=== PATIENT | male | born 1985 | race Caucasian/White ===

== ENCOUNTER 2022-06-10 16:07 | Outpatient (CLI) | payer OTHER, SELFPAY ==
[2022-06-10 16:29] LABS: Hematocrit 37.7 % (42.0-52.0); Hemoglobin 12.7 g/dL (14.0-18.0); Mean Corpuscular HGB Conc 33.7 g/dl (32-36); Mean Corpuscular Hemoglobin 32.7 pg (26-34); Mean Corpuscular Volume 97.2 fl (80-100); Mean Platelet Volume 9.2 fl (7.4-10.4); Platelet Count Result 307 k/mm3 (150-375); Red Blood Count 3.88 M/mm3 (4.6-6.20); Red Cell Distribution Width 12.9 % (11.5-14.5); White Blood Count 9.3 K/mm3 (4.5-10.0)
[2022-06-10 16:42] LABS: Alanine Aminotransferase 47 U/L (6-50); Albumin Level 4.4 g/dL (3.5-5.1); Alkaline Phosphatase 55 U/L (38-126); Anion Gap 6 mmol/L (8-16); Aspartate Amino Transferase 63 U/L (17-59); Bilirubin,Total 0.5 mg/dL (0.2-1.3); Blood Urea Nitrogen 15 mg/dL (9-20); CRP < 0.5 mg/dL (<1.0); Calcium 9.1 mg/dL (8.4-10.2); Carbon Dioxide 27 mmol/L (22-30); Chloride 102 mmol/L (98-107); Estimated Glomerular Filt Rate > 60; Glucose 76 mg/dL (65-110); Potassium 3.8 mmol/L (3.4-5.0); Sodium 135 mmol/L (137-145)
[2022-06-10 16:57] LABS: Erythrocyte Sedimentation Rate 15 mm/hr (0-20)
[2022-06-20 09:49] LABS: Gliadin AB, IgG <1.0 U/mL (<15.0); TTG IGA AB <1.0 U/mL (<15.0)
== END 2022-06-10 16:08 | disposition home or self-care (01) ==
LOC: ANHLAB 16:08
PROVIDERS: PCP Internal Medicine; Visit Provider Nurse Practitioner
DX: K92.1 Melena (principal); K62.89 Other specified diseases of anus and rectum
CPT/HCPCS: 36415; 80053; 83516; 85027; 85652; 86140; 86255

== ENCOUNTER 2022-06-16 14:37 | Outpatient (CLI) | payer OTHER, SELFPAY ==
[2022-06-16 18:10] LABS: Iron 167 ug/dL (49-181)
[2022-06-16 18:26] LABS: Percent Iron Saturation 41 % (20-50)
[2022-06-16 19:21] LABS: Folic Acid 6.6 ng/mL (2.76->20)
== END 2022-06-16 14:38 | disposition home or self-care (01) ==
PROVIDERS: PCP Internal Medicine; Visit Provider Nurse Practitioner
DX: D64.9 Anemia, unspecified (principal)
CPT/HCPCS: 36415; 82607; 82728; 82746; 83540; 83550

== ENCOUNTER 2022-07-03 01:28 | Day surgery (SDC) | payer OTHER, SELFPAY ==
[2022-06-26 08:54] VITALS: BMI 27.1
[2022-07-03 12:00] VITALS: BP 149/76; PULSE 63; RESP 18; TEMP 36.2; O2SAT 100; BMI 26.4
--- NOTE | 2022-07-03 12:15 | WPDANESEPPF ---
Anes - Initial Pre Proc Eval Procedure: Operation Date: 07/03/22 13:30 Proposed Procedures p Colonoscopy - Sandeep Martines MD Date/Time: 07/03/22 12:15 Surgeon: Sandeep Martines MD Pre Op Diagnosis: Rectal bleeding Patient Data Age: 37 Gender: M Height: 1.83 m Weight: 88.4 kg Last Vital Signs Temp 36.2 C L 07/03/22 12:00 Pulse 63 07/03/22 12:00 Resp 18 07/03/22 12:00 BP 149/76 H 07/03/22 12:00 Pulse Ox 100 07/03/22 12:00 O2 Del Method Room Air 07/03/22 12:00 Allergies Allergy/AdvReac Type Severity Reaction Status Date / Time No Known Allergies Allergy Mild Verified 07/03/22 12:08 Home Medications Medication Instructions Recorded Confirmed Type Claritin-D 12 Hour 1 tablet PO Q12H PRN Allergy 06/26/22 07/03/22 History Symptoms Patient hx anesthesia problems: none Family hx anesthesia problems: none Results Review: All pre-operative results and documents have been reviewed as part of the pre-operative evaluation. [facility] Past Medical History Medical History Anemia Hematochezia Insomnia Rectal pain Right rotator cuff tendinitis Seasonal allergic rhinitis Subacromial impingement of right shoulder Tobacco use Surgical History Surgical History History of appendectomy Family History Family History Other Diabetes mellitus Hypertension Social History Social History Smoking status: Current every day smoker Tobacco type: e-cigarettes/vaping Alcohol intake: never Substance use: unknown Substance use type: does not use Living arrangements: with family Additional occupation/education comments: [employer] Gender identity (if verbalized by the patient): Male Spiritual care concerns: No Anes - Eval Final PreProcedure Day of Procedure 07/03/22 12:15 Patient weight: overweight Heart: regular rate and rhythm Lungs: clear to auscultation and normal air movement Airway: Mallampati scale class II Neurological: alert and oriented Last oral intake: >/= 8 hours ASA classification: II Emergent: no Anesthetic plan: proceed Anesthesia type and monitoring: general GIVS Results Review: All pre-operative results and documents have been reviewed as part of the pre-operative evaluation. Informed Consent: The patient's anesthetic plan and its attendant risks and benefits were discussed with the patient/family/POA. Questions were solicited and answers provided to the satisfaction of the patient/family/POA.
[2022-07-03] MEDS: LACTATED RINGERS 1,000 ML 150 ML IV CONT (12:26)
--- NOTE | 2022-07-03 12:41 | PM.HPGS ---
History of Present Illness History of Present Illness Consent: Risks, benefits, and alternatives have been discussed and questions answered. Patient agrees to proceed with procedure. Chief complaint: Rectal bleeding Narrative: Kedar Onofre is a 37 year old male Referred for investigation of rectal bleeding he has seen blood in his stools from time to time for about 4 years. At times it fills the toilet. He denies rectal pain or abdominal pain. Review of Systems Review of Systems: All systems reviewed & are unremarkable except as noted in HPI and below PMFSH Past Medical History Medical History Anemia Hematochezia Insomnia Rectal pain Right rotator cuff tendinitis Seasonal allergic rhinitis Subacromial impingement of right shoulder Tobacco use Surgical History Surgical History History of appendectomy Family History Family History Other Diabetes mellitus Hypertension Social History Social History Smoking status: Current every day smoker Tobacco type: e-cigarettes/vaping Alcohol intake: never Substance use: unknown Substance use type: does not use Living arrangements: with family Additional occupation/education comments: [employer] Gender identity (if verbalized by the patient): Male Spiritual care concerns: No Meds Home Medications and Allergies Home Medications Medication Instructions Recorded Confirmed Type Claritin-D 12 Hour 1 tablet PO Q12H PRN Allergy 06/26/22 07/03/22 History Symptoms Allergies Allergy/AdvReac Type Severity Reaction Status Date / Time No Known Allergies Allergy Mild Verified 07/03/22 12:08 Vital Signs Vital Signs - 24 hr 07/03/22 12:00 Temperature 36.2 C L Pulse Rate 63 Respiratory Rate 18 Blood Pressure 149/76 H Pulse Oximetry 100 Oxygen Delivery Room Air Exam Const: General: alert Orientation/consciousness: patient oriented x3 Resp: Auscultation: clear to auscultation bilaterally Cardio: Rhythm: regular rhythm GI: GI Palp: Yes Soft to palpation and No Tenderness to palpation present (GI) Neuro: General: patient oriented x3 Assessment and Plan Assessment and plan (1) Rectal bleeding: Code(s): K62.5 - Hemorrhage of anus and rectum Status: Acute Assessment and Plan: Colonoscopy with possible biopsy or polypectomy or cautery or injection of substances.
[2022-07-03 13:28] VITALS: BP 103/55; PULSE 63; RESP 15; O2SAT 97
[2022-07-03 13:38] VITALS: BP 106/57; PULSE 54; RESP 14; O2SAT 98
[2022-07-03 13:48] VITALS: BP 111/74; PULSE 54; RESP 17; O2SAT 100
== END 2022-07-03 14:12 | disposition home or self-care (01) ==
PROVIDERS: PCP Internal Medicine; Visit Provider Internal Medicine Gastroenterology
PROC: 0DJD8ZZ Inspection of Lower Intestinal Tract, Via Natural or Artificial Opening Endoscopic (ICD-10-PCS; CPT 45378; principal; 2022-07-03 13:30)
DX: K92.1 Melena (principal); K64.8 Other hemorrhoids; F17.290 Nicotine dependence, other tobacco product, uncomplicated
CPT/HCPCS: 45378; J2704; J7120

== ENCOUNTER 2023-02-27 11:13 | Emergency (ER) | payer OTHER, SELFPAY ==
--- NOTE | ~2023-02-27 | XR_ITS ---
EXAMINATION: XR hand RT 2V DATE: 02/27/2023 12:50 INDICATION: Right hand injury and pain. TECHNIQUE: 2 views of right hand were obtained. COMPARISON: None. FINDINGS: Bone alignment is normal. There is an old healed fracture of diaphysis of fifth metacarpal. There is mild osteoarthritis of second and third distal interphalangeal joints. IMPRESSION: 1. Mild polyarticular osteoarthritis. Reviewed, dictated and finalized at location A.
[2023-02-27 11:17] VITALS: BP 132/72; PULSE 86; RESP 19; TEMP 36.6; O2SAT 97
--- NOTE | 2023-02-27 12:33 | ED.UPPEXIN ---
HPI - Extremity Injury (Upper) General Chief Complaint: Extremity Injury, Upper Stated Complaint: finger infection Time Seen by Provider: 02/27/23 12:12 Source: patient Limitations: no limitations History of Present Illness HPI narrative: Patient is a 37-year-old male present to the emergency department complaining of an injury to his right middle finger. Patient states on Thursday, February 22 he burned his finger on the dorsal aspect on a hot high and it is since has some scant amount of scabbing that is much improved however yesterday he noticed a portion of the middle dorsal aspect of the finger becoming red and swollen prompting her to seek evaluation today. Patient notes that he is right-handed. Patient denies fever, nausea, vomiting, any other injuries, decreased range of motion, history of injuries to this finger. Patient is unsure when his last tetanus shot was. Patient is he has not tried any medications for the pain. Patient describes the pain as a dull ache, worse with movement. Patient denies any discharge. Patient denies any radiation of the pain and overall the pain has been constant. Related Data Home Medications Medication Instructions Recorded Confirmed Claritin-D 12 Hour 1 tablet PO Q12H PRN Allergy 06/26/22 07/03/22 Symptoms Allergies Allergy/AdvReac Type Severity Reaction Status Date / Time No Known Allergies Allergy Mild Verified 07/03/22 12:08 [facility] Past Medical History Medical History Anemia Hematochezia Insomnia Rectal pain Right rotator cuff tendinitis Seasonal allergic rhinitis Subacromial impingement of right shoulder Tobacco use Surgical History Surgical History History of appendectomy Family History Family History Other Diabetes mellitus Hypertension Social History Social History Smoking status: Current every day smoker Tobacco type: e-cigarettes/vaping Alcohol intake: never Substance use: unknown Substance use type: does not use Living arrangements: with family Occupation/Education: occupation Additional occupation/education comments: [employer] Gender identity (if verbalized by the patient): Male Spiritual care concerns: No Exam Const: General: healthy appearing and no acute distress Nutritional Appearance: well nourished Orientation/consciousness: patient oriented x3 HENMT: Head: normal to inspection Eyes: Conjunctivae: conjunctivae normal Resp: Effort & Inspection: normal respiratory effort Cardio: Rate: regular rate Other: radial pulse is 2+ in RUE. GI: Inspection: non-distended Skin: Rashes: no rashes Neuro: General: patient oriented x3 and moves all extremities Extrem: Other: Right upper extremity third digit dorsal medial aspect between the DIP and PIP but not involving the DIP or PIP has a small area of erythema, scant warmth, palpable fluctuance, mild tenderness to palpation. Patient is able to range the right upper extremity third digit actively started to and tired range of motion in both flexion and extension, patient is not holding the finger in flexion, patient denies any significant pain with ranging his finger. Psych: Affect: normal affect Course Vital Signs Vital signs: Vital Signs Temperature 97.8 F 02/27/23 11:17 Pulse Rate 86 02/27/23 11:17 Respiratory Rate 19 02/27/23 11:17 Blood Pressure 132/72 02/27/23 11:17 Pulse Oximetry 97 02/27/23 11:17 Oxygen Delivery Room Air 02/27/23 11:17 Temperature 97.8 F 02/27/23 11:17 Pulse Rate 86 02/27/23 11:17 Respiratory Rate 19 02/27/23 11:17 Blood Pressure 132/72 02/27/23 11:17 Pulse Oximetry 97 02/27/23 11:17 Oxygen Delivery Room Air 02/27/23 11:17 Procedures Abscess I/D hand: Date of Incision: 02/27/23 Time of Incision:
[2023-02-27] MEDS: TETANUS,DIPHTHERIA,AC PERTUSSIS ADULT (0.5 ML) BOOSTRIX IM (12:58)
[2023-02-27] MEDS: CEPHALEXIN 500 MG CAPSULE PO (12:58)
[2023-02-27] MEDS: ACETAMINOPHEN 500 MG TABLET 1000 MG PO (12:58)
[2023-02-27] MEDS: SULFAMETHOXAZOLE/TRIMETHOPRIM 800/160 MG DS TABLET 1 TAB PO (12:58)
== END 2023-02-27 14:20 | disposition home or self-care (01) ==
PROVIDERS: Emergency Provider Student in an Organized Health Care Education/Training Program; PCP Internal Medicine
DX: S69.91XA Unspecified injury of right wrist, hand and finger(s), initial encounter (principal); L03.011 Cellulitis of right finger; F17.290 Nicotine dependence, other tobacco product, uncomplicated; Z23 Encounter for immunization; X19.XXXA Contact with other heat and hot substances, initial encounter
CPT/HCPCS: 10160; 73120; 90471; 90715; 99283; A9270

== ENCOUNTER 2024-08-19 22:15 | Emergency (ER) | payer OTHER, SELFPAY ==
--- NOTE | ~2024-08-19 | XR_ITS ---
EXAMINATION: XR chest 2V DATE: 08/20/2024 03:27 INDICATION: Cough. TECHNIQUE: Frontal and lateral views of the chest were obtained. COMPARISON: Chest 2 views 11/25/2012 FINDINGS: There is no pneumonia, pleural effusion, or pneumothorax. The heart size is normal. IMPRESSION: 1. No acute cardiopulmonary disease. Reviewed, dictated and finalized at location A. [facility] CLERK
[2024-08-19 22:17] VITALS: BP 149/84; PULSE 97; RESP 18; TEMP 36.6; O2SAT 98
--- NOTE | 2024-08-19 22:17 | ECG_ITS ---
Test Date: 2024-08-19 22:22:57 Measurements Intervals [place] Rate: 86 P: 72 OR: 160 QRS: 55 QRSD: 90 T: 50 QT: 348 QTc: 418 Interpretive Statements SINUS RHYTH INCOMPLETE RIGHT BUNDLE BRANCH BLOCK BASELINE ARTIFACT- I, II ,AVR, AVL, AVF BORDERLINE ECG No previous ECG available for comparison Electronically Signed On 08-20-2024 09:58:20 PAINT MIXER by Finesse Rivero D.O.
--- OUTSIDE RECORDS SUMMARY | 2024-08-19 22:17 | XMS_ITS | Patient Health Summary ---
Author Organization [facility] Address [address] [place] [address] Care Team Providers Care Button And Buckle Maker Name Role Phone Angel Farley MD Primary Care Provider [phone] Note from [facility],non-owned Affiliates and Associated Physician Practices is amultiple site organization consisting of ambulatory clinics and hospital sitesin [place], [place], [place] and [place]. This disclosure is being madepursuant to the Care Everywhere program and may not contain all information available regarding this patient. Last updated 18.[facility] [employer] Allergies No known active allergies Medications * Be aware that medications may not be up to date on this document. Alwaysverify current medications with the patient. * naproxen (Naprosyn) 500 MG tablet(Started 11/15/2022) Take 1 (one) tablet by mouth 2 times daily Active Problems No known active problems Social History Tobacco Use Types Packs/Day Years Used Date Smoking Tobacco: Never Assessed Sex and Gender Information Value Date Recorded Sex Assigned at Not on file Gender Identity Not on file Sexual Orientation Not on file Last Filed Vital Signs Vital Sign Reading Time Taken Comments Blood Pressure 116/57 08/09/2017 4:30 AM BAKER PAINT Pulse 79 08/09/2017 4:18 AM BAKER PAINT Temperature 36.9 ??C (98.4 ??F) 08/09/2017 1:17 AM CS T Respiratory Rate 16 08/09/2017 1:17 AM BAKER PAINT Oxygen Saturation 98% 08/09/2017 4:18 AM BAKER PAINT Inhaled Oxygen Concentration - - Weight 93 kg (205 lb) 08/09/2017 1:17 AM BAKER PAINT Height 182.9 cm (6') 08/09/2017 1:17 AM BAKER PAINT Body Mass Index 27.8 08/09/2017 1:17 AM BAKER PAINT Care Teams Button And Buckle Maker Relationship Specialty Start Date End Date Angel Farley MD [address] [address] PCP - General Internal Medicine 07/23/23
--- OUTSIDE RECORDS SUMMARY | 2024-08-19 22:17 | XMS_ITS | Referral Summary ---
Author Organization [facility] Address [address] [place] [address] Care Team Providers Care Industrial Relations Counselor Name Role Phone Angel Farley MD Primary Care Provider [phone] Source Comments [facility] [employer],non-owned Affiliates and Associated Physician Practices is amultiple site organization consisting of ambulatory clinics and hospital sitesin [place], [place], [place] and [place]. This disclosure is being madepursuant to the Care Everywhere program and may not contain all information available regarding this patient. Last updated 18.[facility] [employer] Allergies No known active allergies Medications * Be aware that medications may not be up to date on this document. Alwaysverify current medications with the patient. Medication Sig Dispensed Refills Start Date End Date Status naproxen (Naprosyn) 500 MG tablet Take 1 (one) tablet by mouth 2 times daily 11/15/2022 Active Active Problems No known active problems Social History Tobacco Use Types Packs/Day Years Used Date Smoking Tobacco: Never Assessed Sex and Gender Information Value Date Recorded Sex Assigned at Not on file Gender Identity Not on file Sexual Orientation Not on file Last Filed Vital Signs Vital Sign Reading Time Taken Comments Blood Pressure 116/57 08/09/2017 4:30 AM GAG WRITER Pulse 79 08/09/2017 4:18 AM GAG WRITER Temperature 36.9 ??C (98.4 ??F) 08/09/2017 1:17 AM CS T Respiratory Rate 16 08/09/2017 1:17 AM GAG WRITER Oxygen Saturation 98% 08/09/2017 4:18 AM GAG WRITER Inhaled Oxygen Concentration - - Weight 93 kg (205 lb) 08/09/2017 1:17 AM GAG WRITER Height 182.9 cm (6') 08/09/2017 1:17 AM GAG WRITER Body Mass Index 27.8 08/09/2017 1:17 AM GAG WRITER Plan of Treatment Not on file Care Teams Industrial Relations Counselor Relationship Specialty Start Date End Date Angel Farley MD [address] [address] PCP - General Internal Medicine 07/23/23
--- OUTSIDE RECORDS SUMMARY | 2024-08-19 22:17 | XMS_ITS | Clinical Summary ---
Author Organization [facility] Address [address] [place] [address] Care Team Providers Care Gimp Buttonhole Machine Operator Name Role Phone Angel Farley MD Primary Care Provider [phone] Source Comments [facility],non-owned Affiliates and Associated Physician Practices is amultiple site organization consisting of ambulatory clinics and hospital sitesin [place], [place], [place] and [place]. This disclosure is being madepursuant to the Care Everywhere program and may not contain all information available regarding this patient. Last updated 18.[facility] Allergies No known active allergies Medications * [...] Comments Blood Pressure 116/57 08/09/2017 4:30 AM RELIABILITY ENGINEER Pulse 79 08/09/2017 4:18 AM RELIABILITY ENGINEER Temperature 36.9 ??C (98.4 ??F) 08/09/2017 1:17 AM CS T Respiratory Rate 16 08/09/2017 1:17 AM RELIABILITY ENGINEER Oxygen Saturation 98% 08/09/2017 4:18 AM RELIABILITY ENGINEER Inhaled Oxygen Concentration - - Weight 93 kg (205 lb) 08/09/2017 1:17 AM RELIABILITY ENGINEER Height 182.9 cm (6') 08/09/2017 1:17 AM RELIABILITY ENGINEER Body Mass Index 27.8 08/09/2017 1:17 AM RELIABILITY ENGINEER Plan of Treatment Health Maintenance Due Date Last Done Comments LIPID TESTING 1984 HIV SCREENING 1999 HEPATITIS C SCREENING 04/17/2002 DTAP/TDAP/TD VACCINES (1 - Tdap) 2003 HEPATITIS B VACCINE (1 of 3 - 19+ 3-dose series) 2003 COVID-19 VACCINE (1 - 2023-2 5 season) 2024 INFLUENZA VACCINE (#1) 2024 DEPRESSION SCREENING 07/20/2024 ZOSTER VACCINE (1 of 2) 2034 HIB VACCINE Aged Out No longer eligi ble based on patient's age to complete this topic HPV VACCINE Aged Out No longer eligi ble based on patient's age to complete this topic MENINGOCOCCAL (Group B) VACCINE Aged Out No longer eligible based on patient's age to complete this topic MENINGOCOCCAL VACCINE Aged Out No gina iam eligible based on patient's age to complete this topic PNEUMOCOCCAL VACCINE Aged Out No long er eligible based on patient's age to complete this topic Care Teams Gimp Buttonhole Machine Operator Relationship Specialty [place] [address] [place] [address] PCP - General Internal Medicine 07/23/23
--- OUTSIDE RECORDS SUMMARY | 2024-08-19 22:17 | XMS_ITS | CONTINUITY OF CARE DOCUMENT ---
Author Name addie real Address Unknown Organization [facility] Address [address] [place] [address] Phone [phone] Care Team Providers Care Tromper Name Role Phone Lianna Fuchs MD Unavailable Lianna Fuchs MD Unavailable [phone] [employer] Payer name Policy type / Coverage type [place] red alliance party ID [id number] PAY
[2024-08-20] VITALS (20 sets, daily range): BP systolic 143–161; BP diastolic 84–95; PULSE 70–89; RESP 10–20; O2SAT 92–99
--- OUTSIDE RECORDS SUMMARY | 2024-08-20 01:45 | XMS_ITS | Clinical Summary ---
Author Organization [facility] Address [address] [place] [address] Care Team Providers Care Third Hand Name Role Phone Angel Farley MD Primary Care Provider Source Comments [facility],non-owned Affiliates and Associated Physician Practices is amultiple site organization consisting of ambulatory clinics and hospital sitesin [place], [place], [place] and [place]. This disclosure is being madepursuant to the Care Everywhere program and may not contain all information available regarding this patient. Last updated 18.[facility] Allergies No known active allergies Medications * [...] Comments Blood Pressure 116/57 08/09/2017 4:30 AM COAL INSPECTOR Pulse 79 08/09/2017 4:18 AM COAL INSPECTOR Temperature 36.9 ??C (98.4 ??F) 08/09/2017 1:17 AM CS T Respiratory Rate 16 08/09/2017 1:17 AM COAL INSPECTOR Oxygen Saturation 98% 08/09/2017 4:18 AM COAL INSPECTOR Inhaled Oxygen Concentration - - Weight 93 kg (205 lb) 08/09/2017 1:17 AM COAL INSPECTOR Height 182.9 cm (6') 08/09/2017 1:17 AM COAL INSPECTOR Body Mass Index 27.8 08/09/2017 1:17 AM COAL INSPECTOR Plan of Treatment Health Maintenance Due Date [...] age to complete this topic Care Teams Third Hand Relationship Specialty [place] [address] [place] [address] PCP - General Internal Medicine 07/23/23
--- OUTSIDE RECORDS SUMMARY | 2024-08-20 01:45 | XMS_ITS | CONTINUITY OF CARE DOCUMENT ---
Author Name addie real Address Unknown Organization [facility] Address [address] [place] [address] Phone [phone] Care Team Providers Care Backside Grinder Name Role Phone Lianna Fuchs MD Unavailable Lianna Fuchs MD Unavailable [phone] [employer] PROVID[employer] Payer name Policy type / Coverage type [place] red green party ID [id number] PAY
--- OUTSIDE RECORDS SUMMARY | 2024-08-20 01:45 | XMS_ITS | Referral Summary ---
Author Organization [facility] Address [address] [place] [address] Care Team Providers Care Thermostat Mechanic Name Role Phone Angel Farley MD Primary Care Provider [phone] Source Comments [facility] [employer],non-owned Affiliates and Associated Physician Practices is amultiple site organization consisting of ambulatory clinics and hospital sitesin [place], [place], [place] and [place]. This disclosure is being madepursuant to the Care Everywhere program and may not contain all information available regarding this patient. Last updated 18.[facility] [employer] Allergies No known active allergies Medications * [...] Comments Blood Pressure 116/57 08/09/2017 4:30 AM AQUARIUM SPECIALIST Pulse 79 08/09/2017 4:18 AM AQUARIUM SPECIALIST Temperature 36.9 ??C (98.4 ??F) 08/09/2017 1:17 AM CS T Respiratory Rate 16 08/09/2017 1:17 AM AQUARIUM SPECIALIST Oxygen Saturation 98% 08/09/2017 4:18 AM AQUARIUM SPECIALIST Inhaled Oxygen Concentration - - Weight 93 kg (205 lb) 08/09/2017 1:17 AM AQUARIUM SPECIALIST Height 182.9 cm (6') 08/09/2017 1:17 AM AQUARIUM SPECIALIST Body Mass Index 27.8 08/09/2017 1:17 AM AQUARIUM SPECIALIST Plan of Treatment Not on file Care Teams Thermostat Mechanic Relationship Specialty Start Date End Date Angel Farley MD [address] [address] PCP - General Internal Medicine 07/23/23
--- OUTSIDE RECORDS SUMMARY | 2024-08-20 01:45 | XMS_ITS | Patient Health Summary ---
Author Organization [facility] Address [address] [place] [address] Care Team Providers Care Project Accountant Name Role Phone Angel Farley MD Primary Care Provider [phone] Note from [facility],non-owned Affiliates and Associated Physician Practices is amultiple site organization consisting of ambulatory clinics and hospital sitesin [place], [place], [place] and [place]. This disclosure is being madepursuant to the Care Everywhere program and may not contain all information available regarding this patient. Last updated 18.[facility] Allergies No known active allergies Medications * [...] Comments Blood Pressure 116/57 08/09/2017 4:30 AM TILE APPLICATOR Pulse 79 08/09/2017 4:18 AM TILE APPLICATOR Temperature 36.9 ??C (98.4 ??F) 08/09/2017 1:17 AM CS T Respiratory Rate 16 08/09/2017 1:17 AM TILE APPLICATOR Oxygen Saturation 98% 08/09/2017 4:18 AM TILE APPLICATOR Inhaled Oxygen Concentration - - Weight 93 kg (205 lb) 08/09/2017 1:17 AM TILE APPLICATOR Height 182.9 cm (6') 08/09/2017 1:17 AM TILE APPLICATOR Body Mass Index 27.8 08/09/2017 1:17 AM TILE APPLICATOR Care Teams Project Accountant Relationship Specialty Start Date End Date Angel Farley MD [address] [address] PCP - General Internal Medicine 07/23/23
--- NOTE | 2024-08-20 02:44 | ED_ITS ---
HPI - URI/Sore Throat General Chief Complaint: Upper Respiratory Infection Stated Complaint: cough x1 year Time Seen by Provider: 08/20/24 01:33 History of Present Illness HPI Narrative: 39-year-old male presents emergency department for a dry cough for greater than 1 year. Patient states he went to [facility] a few days ago and had a chest x- ray, was diagnosed with bronchitis and discharged home. He has not been taking any medications. He presents to the ED for worsening shortness of breath today. Denies lower extremity edema, hemoptysis, fever, history of VTE, lower extremity edema, recent surgeries or hospitalizations, chest pain. Patient admits to smoking a vape for the past 7 years and before that smoked cigarettes since he was 6 years old. Denies formal diagnosis of COPD or asthma. Patient states he is established with a PCP but has not followed up with them regarding his symptoms. States he attempted to make an appointment but unfortunately cannot be seen until September. Patient states he did use his daughter's albuterol inhaler today with improvement in breathing. Related Data Home Medications ?Medication ?Instructions ?Recorded ?Confirmed ?Last Taken ?Type Claritin-D 12 Hour 1 tablet PO Q12H PRN Allergy 06/26/22 07/03/22 Unknown History Symptoms Allergies Allergy/AdvReac Type Severity Reaction Status Date / Time No Known Allergies Allergy Mild Verified 08/20/24 01:35 Review of Systems Review of Systems: All systems reviewed & are unremarkable except as noted in HPI and below PMFSH Past Medical History Medical History Anemia Tobacco use Rectal pain Hematochezia Right rotator cuff tendinitis Subacromial impingement of right shoulder Seasonal allergic rhinitis Insomnia Surgical History Surgical History History of appendectomy Family History Family History Other Diabetes mellitus Hypertension Social History Social History Smoking status: Current every day smoker Tobacco type: e-cigarettes/vaping Alcohol intake: never Substance use: unknown Substance use type: does not use Living arrangements: with family Occupation/Education: occupation Additional occupation/education comments: [employer] Gender identity (if verbalized by the patient): Male Spiritual care concerns: No Exam Narrative: GENERAL: Well-appearing, well-nourished, and in no acute distress. HEAD: Normocephalic, atraumatic. EYES: PERRLA and EOMI. ENT: Nares clear, no rhinorrhea or epistaxis. Mucous membranes moist. NECK: Supple. CHEST: Clear to auscultation. No respiratory distress. Satting 98% on room air in no respiratory distress HEART: Regular rate and rhythm. No murmur heard. Normal peripheral pulses. ABDOMEN: Soft, nontender, nondistended, normal active bowel sounds. EXTREMITIES: Normal range of motion. No edema. Negative Homans bilaterally SKIN: Warm, dry, no rash. NEURO: No focal deficits. Alert and oriented x3 Course Vital Signs Vital signs: Vital Signs Temperature 98 F 08/19/24 22:17 Pulse Rate 97 08/19/24 22:17 Respiratory Rate 18 08/19/24 22:17 Blood Pressure 149/84 H 08/19/24 22:17 Pulse Oximetry 98 08/19/24 22:17 Temperature 98 F 08/19/24 22:17 Pulse Rate 79 08/20/24 03:49 Respiratory Rate 15 08/20/24 03:49 Blood Pressure 146/93 H 08/20/24 03:49 Pulse Oximetry 98 08/20/24 03:49 Oxygen Delivery Room Air 08/20/24 01:36 MDM - URI/Sore Throat MDM Narrative Medical decision making narrative: 39-year-old male presents emergency department for dry cough for greater than 1 year and increasing shortness of breath. See HPI for further history. Triage vitals with elevated blood pressure, otherwise unremarkable. Patient is satting 98% on room air in no respiratory distress and speaking in full sentences. Lung sounds are clear. EKG shows normal sinus rhythm with a rate of 86 ppm, normal CT interval, normal QRS duration, normal QTC, no ischemic changes. CXR unremarkable. Viral swabs negative. Perc negative. Patient updated on workup. Will treat as a bronchitis with steroids and albuterol inhaler. Return precautions discussed. He is agreeable with the plan and verbalized un derstanding. D/c in stable condition. Lab Data Labs: Lab Results 08/20/24 Range/Units 02:30 Influenza A (RT-PCR) Negative (Negative) Influenza B (RT-PCR) Negative (Negative) RSV (RT-PCR) Negative (Negative) SARS-CoV-2 RNA (RT-PCR) Negative (Negative) Discharge Plan Discharge Clinical Impression: Bronchitis Patient Disposition: Home, Self-Care Condition: Stable Instructions: Antibiotic Form, Acute Bronchitis (ED) Additional Instructions: Stop smoking. Take medications as directed. Follow up with her primary care provider. Return to the emergency department if you develop a fever, coughing up blood, swelling your legs or other concerning symptoms. Patient Language: Upper Sorbian Prescriptions: New prednisone 20 mg tablet 40 mg PO DAILY Qty: 10 0RF albuterol sulfate 90 mcg/actuation HFA aerosol inhaler 1 inh inhalation QID PRN (Reason: shortness of breath or wheezing) Qty: 6.7 0RF No Action Claritin-D 12 Hour 1 tablet PO Q12H PRN (Reason: Allergy Symptoms) sulfamethoxazole-trimethoprim [Bactrim DS] 800-160 mg tablet 1 tablet PO Q12H Qty: 10 0RF cephalexin 500 mg tablet 500 mg PO Q6H 5 Days Qty: 20 0RF acetaminophen 500 mg tablet 500 mg PO Q6H PRN (Reason: pain) Qty: 30 0RF Follow-up/Referrals: Miguelito,Angel Stoner MD [Primary Care Provider] -
[2024-08-20] MEDS: IPRATROPIUM 0.5 MG/ALBUTEROL SULFATE 2.5 MG AMPUL.NEB 3 ML INHALATION (03:08)
[2024-08-20 03:09] LABS: Influenza A QL RT-PCR Negative (Negative); Influenza B QL RT-PCR Negative (Negative); RSV RNA, RT-PCR Negative (Negative); SARS-CoV-2 RNA PCR Negative (Negative)
--- NOTE | 2024-08-20 03:18 | PC.NURSE ---
Patient taken to xray via w/c.
== END 2024-08-20 04:27 | disposition home or self-care (01) ==
PROVIDERS: Emergency Provider Physician Assistant; PCP Internal Medicine
DX: J40 Bronchitis, not specified as acute or chronic (principal); Z20.822 Contact with and (suspected) exposure to COVID-19; F17.290 Nicotine dependence, other tobacco product, uncomplicated; I45.10 Unspecified right bundle-branch block
CPT/HCPCS: 71046; 87637; 93005; 94640; 99283